=== PATIENT | female | born 1955 | race Caucasian/White ===

== ENCOUNTER → 2018-01-11 06:57 | Outpatient (CLI) | payer OTHER, SELFPAY ==
[2018-01-11 09:55] LABS: Alanine Aminotransferase 78 IU/L (9-52); Albumin 4.4 g/dL (3.5-5.0); Albumin Globulin Ratio 1.4 (1.0-2.8); Alkaline Phosphatase 80 U/L (38-126); Aspartate Aminotransferase 60 IU/L (14-36); Bilirubin Total 0.6 mg/dL (0.2-1.3); Bilirubin Unconjugated 0.3 mg/dL (0.0-1.1); Cholesterol 206 mg/dL (140-199); Globulin 3.2 g/dL (1.7-4.1); HDL Cholesterol 52 mg/dL (40-60); HEMOLYSIS < 15 (0-50); LDL Cholesterol Calculated 112 mg/dL (<100); Total Protein 7.6 g/dL (6.3-8.2); Triglycerides 212 mg/dL (35-150)
[2018-01-11 10:17] LABS: Thyroid Stimulating Hormone 2.85 uIU/mL (0.47-4.68)
== END ==
PROVIDERS: PCP Physician Assistant; Visit Provider Physician Assistant
DX: R74.8 Abnormal levels of other serum enzymes (principal); E78.5 Hyperlipidemia, unspecified; E03.9 Hypothyroidism, unspecified; R94.6 Abnormal results of thyroid function studies; R79.89 Other specified abnormal findings of blood chemistry
CPT/HCPCS: 36415; 80061; 80076; 84443

== ENCOUNTER → 2018-04-08 14:56 | Outpatient (CLI) | payer OTHER, SELFPAY ==
[2018-04-10 15:19] LABS: Fecal Immunochemical Test NOT DETECTED
== END ==
PROVIDERS: PCP Physician Assistant; Visit Provider Physician Assistant
DX: Z12.11 Encounter for screening for malignant neoplasm of colon (principal)
CPT/HCPCS: 82274

== ENCOUNTER → 2019-02-14 06:56 | Outpatient (CLI) | payer MEDICARE, OTHER, SELFPAY ==
[2019-02-14 08:39] LABS: Alanine Aminotransferase 69 IU/L (9-52); Albumin 4.5 g/dL (3.5-5.0); Albumin Globulin Ratio 1.5 (1.0-2.8); Alkaline Phosphatase 61 U/L (38-126); Aspartate Aminotransferase 52 IU/L (14-36); BUN Creatinine Ratio 33.3 (6-22); Bilirubin Total 0.6 mg/dL (0.2-1.3); Blood Urea Nitrogen 20 mg/dL (7-17); Calcium 9.6 mg/dL (8.4-10.2); Carbon Dioxide 32 mmol/L (22-32); Chloride 96 mmol/L (98-107); Cholesterol 199 mg/dL (140-199); Estimated Glomerular Filt Rate > 60.0 mL/min (>60); Globulin 3.1 g/dL (1.7-4.1); Glucose 105 mg/dL (80-110); HDL Cholesterol 56 mg/dL (40-60); HEMOLYSIS < 15 (0-50); LDL Cholesterol Calculated 94 mg/dL (<100); Potassium 3.7 mmol/L (3.4-5.1); Sodium 137 mmol/L (137-145); Total Protein 7.6 g/dL (6.3-8.2); Triglycerides 245 mg/dL (35-150)
[2019-02-14 08:40] LABS: Creatinine Urine Random 112.9 mg/dL
[2019-02-14 08:45] LABS: Microalbumi Creatinin Ratio Ur 7.9 ug/mg CR (<30); Microalbumin Urine Random 0.9 mg/dL (0-1.6)
[2019-02-14 09:10] LABS: Thyroid Stimulating Hormone 4.74 uIU/mL (0.47-4.68)
== END ==
PROVIDERS: PCP Physician Assistant; Visit Provider Physician Assistant
DX: E03.9 Hypothyroidism, unspecified (principal); I10 Essential (primary) hypertension; K76.0 Fatty (change of) liver, not elsewhere classified
CPT/HCPCS: 36415; 80053; 80061; 82043; 82570; 84443

== ENCOUNTER → 2019-03-14 07:47 | Outpatient (CLI) | payer MEDICARE, OTHER, SELFPAY ==
--- NOTE | 2019-03-14 07:50 | DI.MG.S_ITS ---
BILATERAL DIGITAL SCREENING MAMMOGRAM 3D/2D WITH CAD: 03/14/2019 CLINICAL: Routine screening. Family history of breast cancer. Comparison is made to exams dated: 04/16/2017 mammogram, 04/05/2014 mammogram, 05/14/2012 mammogram, and 02/25/2008 mammogram - [facility]. There are scattered fibroglandular elements in both breasts. Current study was also evaluated with a Computer Aided Detection (CAD) system. No significant masses, calcifications, or other findings are seen in either breast. IMPRESSION: NEGATIVE There is no mammographic evidence of malignancy. A 1 year screening mammogram is recommended. This exam was interpreted at Station ID: [id number]. NOTE: For mammograms, a report in lay terms will be sent to the patient. Approximately 15% of breast malignancies will not be visualized mammographically. In the management of a palpable breast mass, a negative mammogram must not discourage biopsy of a clinically suspicious lesion. Electronically Signed By: Jaswinder alcaraz/ilya:03/14/2019 09:18:20 letter sent: Normal Exam ACR BI-RADS Category 1: Negative [id number]
== END ==
PROVIDERS: PCP Physician Assistant; Visit Provider Physician Assistant
DX: Z12.31 Encounter for screening mammogram for malignant neoplasm of breast (principal); Z80.3 Family history of malignant neoplasm of breast; M85.851 Other specified disorders of bone density and structure, right thigh; Z78.0 Asymptomatic menopausal state; F17.200 Nicotine dependence, unspecified, uncomplicated
CPT/HCPCS: 77063; 77067; 77080

== ENCOUNTER 2019-11-16 09:12 | Emergency (ER) | payer MEDICARE, OTHER, SELFPAY ==
[2019-11-16] VITALS (7 sets, daily range): BP systolic 151–225; BP diastolic 72–107; PULSE 70–108; RESP 12–22; TEMP 36.9; O2SAT 97–99; BMI 29.9
--- NOTE | 2019-11-16 09:30 | ED.NEUROSD ---
HPI - Neuro Symptoms/Deficit General Chief Complaint: Hypertension Stated Complaint: high blood pressure/ floaters in right eye Time Seen by Provider: 11/16/19 09:24 Source: patient and family Mode of arrival: Ambulatory Limitations: no limitations History of Present Illness HPI Narrative: This is a 64-year-old female who comes emergency department with complaint of elevated blood pressure. She states she has been checking at home soon elevated since September but increasingly high. She states she gets symptoms such as headaches, and nausea. She has not had any major vision changes other than some floaters in her right eye which occurred about a month ago. She has not had any vision loss. She denies any chest pain or shortness of she has nausea but no vomiting. She denies any abdominal pain. She denies any diarrhea, constipation or new GI symptoms. She denies any frequency, dysuria urgency. She denies any swelling in her extremities. She denies any numbness, tingling or weakness in her extremities. She has a history of a TIA in the . She takes lisinopril 10 mg at bedtime and a lisinopril/hydrochlorothiazide in the morning. She states she has been taking an additional 10 mg in the afternoon without much change. She does take levothyroxine. Patient states that she has had her appendix and tonsils removed but denies any other surgeries. She thought she was taking an aspirin daily because of her combination blood pressure medication but we corrected that information today. She does continue to smoke daily, no alcohol, no illicit. She is accompanied by her today. She comes in today because her pressure is significantly elevated in comparison to what has been in the last couple weeks and the nausea is worse than normal. She does not know any causation with her headaches and nausea and symptom onset Related Data Home Medications Medication Instructions Recorded Confirmed lisinopril 10 mg PO BEDTIME 11/16/19 11/16/19 lisinopril-hydrochlorothiazide 1 tab PO QAM 11/16/19 11/16/19 Previous Rx's Medication Instructions Recorded alendronate 70 mg tablet 70 mg PO QWEEK #12 tab 03/17/19 hydroxyzine HCl 25 mg tablet 25 mg PO BEDTIME PRN #90 tab 08/05/19 levothyroxine 75 mcg tablet 75 mcg PO QAM #90 tab 08/15/19 codeine 10 mg-guaifenesin 100 mg/5 5 ml PO BEDTIME PRN #120 ml 09/06/19 mL oral liquid levothyroxine 50 mcg PO DAILY #30 cap 11/16/19 metoprolol succinate 25 mg PO DAILY #30 each 11/16/19 Allergies Allergy/AdvReac Type Severity Reaction Status Date / Time codeine [CODEINE] Allergy Mild Itchy skin Verified 11/16/19 09:38 azithromycin [AZITHROMYCIN] AdvReac Intermediate UPSET Verified 11/16/19 09:38 STOMACH AND DIARRHEA hydrocodone [HYDROCODONE] AdvReac Mild Itching Verified 11/16/19 09:38 Review of Systems Review of Systems ROS Unobtainable: All systems reviewed & are unremarkable except as noted in HPI and below Patient History Medical History Anxiety (Acute) Low back pain (Acute) Tobacco abuse (Acute) Surgical History Status post appendectomy Status post tonsillectomy and adenoidectomy Status post tubal ligation Social History Smoking Status: Current every day smoker Tobacco: How many years used: 35 quit status: considering quitting second hand exposure: No alcohol intake: former substance use type: does not use Smoking Status: Former smoker Exam Narrative Exam Narrative: GEN: well nourished, well appearing female, alert and oriented x 3, patient appears to be in mild distress. HEENT: Atraumatic, pupils are equal round reactive to light, extraocular movements are intact, nares are clear, no throat is clear without any exudates, erythema, tonsillar enlargement or uvular deviation, no facial droop. HEART: Regular rate and rhythm without murmur, clicks, rubs. Pulses are equal in upper and lower extremities LUNGS:Lungs clear to auscultation, no wheezes, rales, crackles, chest moves symmetrically, no tachypnea, no accessory muscle use. ABD:bowel sounds normal, soft, non-tender, no guarding, rebound, rigidity, no masses noted, no hepatosplenomegaly, no bruit or pulsatile mass. :No CVA tenderness MSCL: Non-tender, no muscle atrophy, muscles strength 5/5 upper and lower extremities, full range of motion, normal gait NEURO:CN 2-12 intact, sensation normal, reflexes 2/4 upper and lower extremities. SKIN: no rash, no erythema, no petechiae or other changes noted. Initial Vital Signs Initial Vital Signs: Vital Signs Temperature 98.4 F 11/16/19 09:35 Pulse Rate 108 H 11/16/19 09:35 Respiratory Rate 22 11/16/19 09:35 Blood Pressure 216/102 H 11/16/19 09:35 Pulse Oximetry 97 11/16/19 09:35 Scores GCS Lud[place] coma scale eye opening: Spontaneous [place] coma scale verbal response: Orientated [place] coma scale motor response: Obey commands Lud[place] coma scale total score: 15 Course Orders Ordered: ED Orders 11/16/19 09:30 Complete Blood Count AUTO DIFF Stat Comprehensive Metabolic Panel Stat Lipase Stat Partial Thromboplastin Time Stat Prothrombin Time INR Stat Thyroid Stimulating Hormone Stat Troponin & CK Cardiac Panel Stat 11/16/19 09:35 XR chest 1V Stat EKG-12 Lead Stat 11/16/19 10:03 CT head/brain wo con Stat 11/16/19 10:41 Urine Microscopic Stat Discontinued Medications Sodium Chloride (Normal Saline 0.9%) 1,000 mls @ 125 mls/hr IV CONT AMANDA Last Infusion: 11/16/19 11:41 Dose: 0 mls/hr Documented by: Infusion: 11/16/19 11:05 Dose: 0 mls/hr Documented by: Admin: 11/16/19 10:18 Dose: 125 mls/hr Documented by: JOE Metoprolol Succinate (Toprol Xl) 25 mg PO NOW ONE Stop: 11/16/19 10:21 Last Admin: 11/16/19 10:33 Dose: 25 mg Documented by: JOE Metoprolol Tartrate (Lopressor) 5 mg IV NOW ONE Stop: 11/16/19 10:14 Last Admin: 11/16/19 10:19 Dose: Not Given Documented by: JOE Metoprolol Tartrate (Lopressor) 25 mg PO NOW ONE Stop: 11/16/19 10:19 Last Admin: 11/16/19 10:23 Dose: Not Given Documented by: JOE Vital Signs Vital signs: Vital Signs - 8 hr 11/16/19 09:35 11/16/19 09:42 11/16/19 10:15 Temperature 98.4 F Pulse Rate 108 H 90 80 Respiratory Rate 22 12 16 Blood Pressure 216/102 H Blood Pressure [Right Arm] 225/107 H 177/90 H Pulse Oximetry 97 99 99 11/16/19 10:33 11/16/19 10:44 11/16/19 11:24 Temperature Pulse Rate 80 74 71 Respiratory Rate 14 17 Blood Pressure 177/90 H Blood Pressure [Right Arm] 151/72 H 166/89 H Pulse Oximetry 99 99 11/16/19 11:40 Temperature Pulse Rate 70 Respiratory Rate Blood Pressure 166/89 H Blood Pressure [Right Arm] Pulse Oximetry MDM - Neuro Symptoms/Deficit Lab Data Attestation: I reviewed the patient's lab results. Result diagrams: 11/16/19 09:30 11/16/19 09:30 Labs: Lab Results 11/16/19 11/16/19 11/16/19 Range/Units 09:30 09:30 09:30 WBC 7.3 (4.5-11.0) X10^3/uL RBC 4.59 (4.0-5.2) X10^6/uL Hgb 14.2 (12.0-16.0) g/dL Hct 40.5 (36-46) % MCV 88.3 (80-100) fL MCH 30.9 (26-34) PG MCHC 35.0 (30-36) % RDW 14.0 (11.6-14.8) % Plt Count 299 (150-400) X10^3/uL Neut % (Auto) 42.6 L (50-75) % Lymph % (Auto) 42.5 H (25-40) % Gillespie % (Auto) 12.3 (3-14) % Eos % (Auto) 1.8 L (2-4) % Baso % (Auto) 0.8 (0-2) % Neut # (Auto) 3100 (4751-7198) /uL Lymph # (Auto) 3100 (7181-4288) /uL Gillespie # (Auto) 900 (0-900) /uL Eos # (Auto) 100 (0-450) /uL Baso # (Auto) 100 (0-100) /uL PT 11.6 (10.1-12.7) SECONDS INR 1.0 (0.9-1.3) APTT 37 H (26.4-36.2) SECONDS Sodium 129 L (137-145) mmol/L Potassium 3.4 (3.4-5.1) mmol/L Chloride 90 L (98-107) mmol/L Carbon Dioxide 27 (22-32) mmol/L BUN 13 (7-17) mg/dL Creatinine 0.50 L (0.52-1.04) mg/dL Estimated GFR > 60.0 (>60) mL/min BUN/Creatinine Ratio 26.0 H (6-22) Glucose 117 H (80-110) mg/dL Calcium 9.9 (8.4-10.2) mg/dL Total Bilirubin 0.6 (0.2-1.3) mg/dL AST 105 H (14-36) IU/L ALT 159 H (<35) IU/L Alkaline Phosphatase 77 (38-126) U/L Total Creatine Kinase 89 (30-135) U/L CK-MB (CK-2) TNP CK-MB (CK-2) Rel Index TNP Troponin I < 0.012 (0.01-0.034) ng/mL Total Protein 8.3 H (6.3-8.2) g/dL Albumin 5.1 H (3.5-5.0) g/dL Globulin 3.2 (1.7-4.1) g/dL Albumin/Globulin Ratio 1.6 (1.0-2.8) Lipase 160 (23-300) U/L TSH (0.47-4.68) uIU/mL Urine RBC (0-5/HPF) Urine WBC (0-5/HPF) Urine Bacteria (None) Ur Culture Indicated? 11/16/19 11/16/19 Range/Units 09:30 10:41 WBC (4.5-11.0) X10^3/uL RBC (4.0-5.2) X10^6/uL Hgb (12.0-16.0) g/dL Hct (36-46) % MCV (80-100) fL MCH (26-34) PG MCHC (30-36) % RDW (11.6-14.8) % Plt Count (150-400) X10^3/uL Neut % (Auto) (50-75) % Lymph % (Auto) (25-40) % Gillespie % (Auto) (3-14) % Eos % (Auto) (2-4) % Baso % (Auto) (0-2) % Neut # (Auto) (0983-4482) /uL Lymph # (Auto) (2585-0948) /uL Gillespie # (Auto) (0-900) /uL Eos # (Auto) (0-450) /uL Baso # (Auto) (0-100) /uL PT (10.1-12.7) SECONDS INR (0.9-1.3) APTT (26.4-36.2) SECONDS Sodium (137-145) mmol/L Potassium (3.4-5.1) mmol/L Chloride (98-107) mmol/L Carbon Dioxide (22-32) mmol/L BUN (7-17) mg/dL Creatinine (0.52-1.04) mg/dL Estimated GFR (>60) mL/min BUN/Creatinine Ratio (6-22) Glucose (80-110) mg/dL Calcium (8.4-10.2) mg/dL Total Bilirubin (0.2-1.3) mg/dL AST (14-36) IU/L ALT (<35) IU/L Alkaline Phosphatase (38-126) U/L Total Creatine Kinase (30-135) U/L CK-MB (CK-2) CK-MB (CK-2) Rel Index Troponin I (0.01-0.034) ng/mL Total Protein (6.3-8.2) g/dL Albumin (3.5-5.0) g/dL Globulin (1.7-4.1) g/dL Albumin/Globulin Ratio (1.0-2.8) Lipase (23-300) U/L TSH 11.40 H (0.47-4.68) uIU/mL Urine RBC 0-1/hpf (0-5/HPF) Urine WBC None seen (0-5/HPF) Urine Bacteria None seen (None) Ur Culture Indicated? Cult not indicated Urine Dip Bedside Urine Glucose Negative Bedside Urine Bilirubin - Negative Bedside Urine Ketone - Negative Urine Specific [place] 1.015 Bedside Urine Occult Blood + Bedside Urine pH 7.0 Bedside Urine Protein - Negative Bedside Urine Urobilinogen - Negative Bedside Urine Nitrite - Negative Bedside Urine Leukocytes - Negative Esterase Imaging Data CT scan - head: Radiologist's Impression: [address] [address] [address] Scan Report Signed Patient: Britt Angulo [facility]#: [id number] : [id number] Age/Sex: 64 / FDate of Service: 11/16/19 Loc: ED Accession Number: [id number] Procedure: CT head/brain wo con Ordering Provider: Celi Dai D.O. PROCEDURE: CT HEAD/BRAIN WO CON INDICATIONS: headaches, nausea, htn TECHNIQUE: Noncontrast 4.5 mm thick angled axial sections acquired from the foramen magnum to the vertex, with coronal and sagittal reformats. For radiation dose reduction, the following was used: automated exposure control, adjustment of mA and/or kV according to patient size. COMPARISON: None. FINDINGS: Image quality: Excellent. CSF spaces: Basal cisterns are patent. No extra-axial fluid collections. Ventricles are normal in size and shape. Brain: No midline shift. No intracranial masses or hemorrhage. Zamora-white matter interface is normal. Skull and face: Calvarium and visualized facial bones are intact, without suspicious lesions. Sinuses: Visualized sinuses and mastoids are clear. IMPRESSION: Normal for age, source of current headaches and nausea symptoms is not seen. Dictated by: Abrahan Salazar M.D. on 11/16/2019 at 10:20 Approved by: Abrahan Salazar M.D. on 11/16/2019 at 10:20 Chest x-ray: Radiologist's Impression: [address] [address] XRay Report Signed Patient: Britt Angulo [facility]#: [id number] : [id number] Age/Sex: 64 / FDate of Service: 11/16/19 Loc: ED Accession Number: [id number] Procedure: XR chest 1V Ordering Provider: Celi Dai D.O. PROCEDURE: XR CHEST 1V INDICATIONS: chest pain TECHNIQUE: One view of the chest was acquired. COMPARISON: [facility], CHEST 2 VIEW, 07/20/2017, 8:45. FINDINGS: Surgical changes and devices: None. Lungs and pleura: Lungs are clear. No pleural effusions or pneumothorax. Mediastinum: Mildly tortuous thoracic aorta is seen. Heart size is normal. Bones and chest wall: No suspicious bony lesions. Overlying soft tissues appear unremarkable. IMPRESSION: No acute cardiopulmonary pathology. Dictated by: Carmine Powell M.D. on 11/16/2019 at 9:57 Approved by: Carmine Powell M.D. on 11/16/2019 at 9:57 ECG Data Attestation: I personally reviewed and interpreted this ECG as follows: Prior ECG tracings: not available for review Interpretation: Sinus tachycardia rate of 106 MI 152 QRS of 90 and QTC [address] No [address] elevation appreciated no depression appreciated. Left axis deviation. Nonsecific change. MDM Narrative Medical decision making narrative: Patient comes in hypertensive, her blood pressure is improving she is down to 189/89 after some observation but was given a single dose of metoprolol p.o. extended release. Head CT and chest x-ray show no acute changes. EKG no priors for comparison she was tachycardic at 1:06 a.m. but no acute changes appreciated. CBC shows low neutrophils with elevated lymphocytes otherwise normal white count, hemoglobin and platelets were 37, patient does have some electrolyte abnormalities with a sodium of 129 and a chloride of 90 which may be contributing to her headaches electrolytes are otherwise normal with a normal renal function and glucose is 117. AST and ALT are 105 and 159 with normal bilirubin and normal lipase troponin is negative. TSH shows elevated TSH. poc urine shows, some blood but no other acute changes Patient's lisinopril and HCTZ may be related to patient's hyponatremia although typically these medications called hypokalemia. Her TSH is also quite elevated and up from prior in February of this may also be causing some of her symptoms. Patient states she has had elevated LFTs chronically. She does not appear to have any other end-organ damage at this time. Discussed with her primary care physician, Dr. Manzano and plan to increase her levothyroxine to 125 micro g daily and to add metoprolol 25 mg 1 tablet p.o. extended release daily and have patient follow-up in the short term with her primary care physician. Discussed with patient, return precautions were discussed. Patient is comfortable with this plan. Discharge Plan Departure Patient Disposition: Home Clinical Impression: Hypertension, Hyponatremia Discharge Date/Time: 11/16/19 11:50 Activity Restrictions/Additional Instructions: Follow-up with your primary care, Dr. Manzano in the next week. Call for an appointment. Continue to check your blood pressures regularly at home and keep a log for your office visit if you have a cuff available. If you have BP greater than 190/100 call to discuss with your physician about adjusting your medications. Increase your levothyroxine to 125 mcg daily. Take your usual 75mcg tablet + 50mcg tablet daily. Also start metoprolol 25mg extended release, take 1 tablet daily for your blood pressure. Take your first dose tomorrow. Prescription was sent to [facility] Continue your current home blood pressure medication of lisinopril and lisinopril/hydrochlorothiazide daily. Return to the ER for severe headaches, passing out, new chest pain or shortness of breath, persistent vomiting, black or bloody stools, swelling in her extremities, sudden vision changes, new numbness tingling or weakness or other new or concerning symptoms. Prescriptions: New metoprolol succinate 25 mg capsule,jose ramon,ER 24hr 25 mg PO DAILY Qty: 30 RF: 0 levothyroxine 50 mcg capsule 50 mcg PO DAILY Qty: 30 RF: 0 No Action alendronate 70 mg tablet 70 mg PO QWEEK Qty: 12 RF: 3 levothyroxine [Synthroid] 75 mcg tablet 75 mcg PO QAM Qty: 90 RF: 0 hydroxyzine HCl 25 mg tablet 25 mg PO BEDTIME PRN (Reason: anxiety) Qty: 90 RF: 1 codeine-guaifenesin 10-100 mg/5 mL liquid 5 ml PO BEDTIME PRN (Reason: cough) Qty: 120 RF: 1 lisinopril 10 mg tablet 10 mg PO BEDTIME RF: 0 lisinopril-hydrochlorothiazide 20-25 mg tablet 1 tab PO QAM RF: 0 Referrals: Enio Manzano DO [Primary Care Provider] - Stand Alone Forms: Work Release Note, Work/School Release
--- NOTE | 2019-11-16 09:35 | DI.RAD.S_ITS ---
PROCEDURE: XR CHEST 1V INDICATIONS: chest pain TECHNIQUE: One view of the chest was acquired. COMPARISON: [facility], , CHEST 2 VIEW, 07/20/2017, 8:45. FINDINGS: Surgical changes and devices: None. Lungs and pleura: Lungs are clear. No pleural effusions or pneumothorax. Mediastinum: Mildly tortuous thoracic aorta is seen. Heart size is normal. Bones and chest wall: No suspicious bony lesions. Overlying soft tissues appear unremarkable. IMPRESSION: No acute cardiopulmonary pathology. Dictated by: Carmine Powell M.D. on 11/16/2019 at 9:57 Approved by: Carmine Powell M.D. on 11/16/2019 at 9:57
[2019-11-16 09:41] LABS: Add Manual Diff / Slide Review NO; Basophils Absolute Auto 100 /uL (0-100); Basophils Percent Auto 0.8 % (0-2); Eosinophils Absolute Auto 100 /uL (0-450); Eosinophils Percent Auto 1.8 % (2-4); Hematocrit 40.5 % (36-46); Hemoglobin 14.2 g/dL (12.0-16.0); Lymphocytes Absolute Auto 3100 /uL (1100-4500); Lymphocytes Percent Auto 42.5 % (25-40); Mean Corpuscular Hemoglobin 30.9 PG (26-34); Mean Corpuscular Volume 88.3 fL (80-100); Monocytes Absolute Auto 900 /uL (0-900); Monocytes Percent Auto 12.3 % (3-14); Neutrophils Absolute Auto 3100 /uL (1500-7000); Neutrophils Percent Auto 42.6 % (50-75); Platelet Count 299 X10^3/uL (150-400); Red Blood Cell Count 4.59 X10^6/uL (4.0-5.2); White Blood Cell Count 7.3 X10^3/uL (4.5-11.0)
[2019-11-16 09:45] LABS: Prothrombin Time 11.6 SECONDS (10.1-12.7)
[2019-11-16 09:47] LABS: PTT Partial Thromboplastin Tim 37 SECONDS (26.4-36.2)
[2019-11-16 09:49] LABS: Alanine Aminotransferase 159 IU/L (<35); Albumin 5.1 g/dL (3.5-5.0); Albumin Globulin Ratio 1.6 (1.0-2.8); Alkaline Phosphatase 77 U/L (38-126); Aspartate Aminotransferase 105 IU/L (14-36); Bilirubin Total 0.6 mg/dL (0.2-1.3); Blood Urea Nitrogen 13 mg/dL (7-17); Calcium 9.9 mg/dL (8.4-10.2); Carbon Dioxide 27 mmol/L (22-32); Chloride 90 mmol/L (98-107); Creatine Kinase 89 U/L (30-135); Estimated Glomerular Filt Rate > 60.0 mL/min (>60); Globulin 3.2 g/dL (1.7-4.1); Glucose 117 mg/dL (80-110); HEMOLYSIS 25 (0-50); Lipase 160 U/L (23-300); Potassium 3.4 mmol/L (3.4-5.1); Sodium 129 mmol/L (137-145); Total Protein 8.3 g/dL (6.3-8.2)
[2019-11-16 10:00] LABS: Troponin I < 0.012 ng/mL (0.01-0.034)
--- NOTE | 2019-11-16 10:03 | DI.CT.S_ITS ---
PROCEDURE: CT HEAD/BRAIN WO CON INDICATIONS: headaches, nausea, htn TECHNIQUE: Noncontrast 4.5 mm thick angled axial sections acquired from the foramen magnum to the vertex, with coronal and sagittal reformats. For radiation dose reduction, the following was used: automated exposure control, adjustment of mA and/or kV according to patient size. COMPARISON: None. FINDINGS: Image quality: Excellent. CSF spaces: Basal cisterns are patent. No extra-axial fluid collections. Ventricles are normal in size and shape. Brain: No midline shift. No intracranial masses or hemorrhage. Zamora-white matter interface is normal. Skull and face: Calvarium and visualized facial bones are intact, without suspicious lesions. Sinuses: Visualized sinuses and mastoids are clear. IMPRESSION: Normal for age, source of current headaches and nausea symptoms is not seen. Dictated by: Arbahan Salazar M.D. on 11/16/2019 at 10:20 Approved by: Abrahan Salazar M.D. on 11/16/2019 at 10:20
[2019-11-16] MEDS: SODIUM CHLORIDE 0.9% 1,000 ML 125 ML IV (10:18)
[2019-11-16] MEDS: METOPROLOL ER 25 MG TABLET PO (10:33)
--- NOTE | 2019-11-16 10:36 | PC.NURSE ---
h/o hypertension w/ increased bp readings over past month. + smoker. States has been on current regimen for ever. c/o headache 2/10 and nausea. BEFAST negative. Neuro intact. Denies chest pain/ shortness of breath. Very anxious but verbally reassured.
[2019-11-16 11:13] LABS: Bacteria Urine None Seen; WBC Urine None Seen (0-5/HPF)
[2019-11-16 11:27] LABS: Culture Indicated Urine Cult Not Indicated; RBC Urine 0-1/HPF (0-5/HPF)
== END 2019-11-16 11:50 | disposition home or self-care (01) ==
PROVIDERS: Emergency Provider Emergency Medicine; PCP Family Medicine
DX: I10 Essential (primary) hypertension (principal); E87.1 Hypo-osmolality and hyponatremia; R07.9 Chest pain, unspecified; R79.89 Other specified abnormal findings of blood chemistry; R51 Headache; R11.0 Nausea
CPT/HCPCS: 36415; 70450; 71045; 80053; 81003; 81015; 82550; 83690; 84443; 84484; 85025; 85610; 85730; 93005; 96360; 99285

== ENCOUNTER 2019-12-05 10:35 | Emergency (ER) | payer MEDICARE, OTHER, SELFPAY ==
[2019-12-05] VITALS (12 sets, daily range): BP systolic 171–224; BP diastolic 92–107; PULSE 84–93; RESP 11–24; TEMP 36.7; O2SAT 95–99
--- NOTE | 2019-12-05 10:44 | ED_ITS ---
HPI - General Adult General Chief complaint: Hypertension Stated complaint: something wrong with blood pressure Time Seen by Provider: 12/05/19 10:44 Source: patient Mode of arrival: Ambulatory Limitations: no limitations History of Present Illness HPI narrative: 64-year-old female former smoker with history of hypertension presents with a chief complaint of feeling poorly with vague headache and general fatigue with gradually increasing blood pressure into the 200s. She was seen here few weeks ago under relatively similar circumstances and had some alterations in her medications after a very thorough evaluation. She denies any specific chest pain or shortness of breath. She denies any focal neurologic fi ndings such as numbness, tingling or weakness. She denies any vomiting but as stated, is nauseated. She denies abdominal pain nor dysuria, frequency or urgency. Related Data Home Medications Medication Instructions Recorded Confirmed lisinopril 10 mg PO BEDTIME 11/16/19 11/23/19 lisinopril-hydrochlorothiazide 1 tab PO QAM 11/16/19 11/23/19 Previous Rx's Medication Instructions Recorded alendronate 70 mg tablet 70 mg PO QWEEK #12 tab 03/17/19 hydroxyzine HCl 25 mg tablet 25 mg PO BEDTIME PRN #90 tab 08/05/19 codeine 10 mg-guaifenesin 100 mg/5 5 ml PO BEDTIME PRN #120 ml 09/06/19 mL oral liquid levothyroxine 125 mcg tablet 125 mcg PO DAILY #90 tab 11/18/19 metoprolol succinate 25 mg capsule 25 mg PO DAILY #90 each 11/23/19 sprinkle, ext. release 24 hr Allergies Allergy/AdvReac Type Severity Reaction Status Date / Time codeine [CODEINE] Allergy Mild Itchy skin Verified 11/23/19 13:16 azithromycin [AZITHROMYCIN] AdvReac Intermediate UPSET Verified 11/23/19 13:16 STOMACH AND DIARRHEA hydrocodone [HYDROCODONE] AdvReac Mild Itching Verified 11/23/19 13:16 Review of Systems Constitutional Constitutional: Denies chills, Reports fatigue, Denies fever(s), Denies frequent falls, Denies lethargy and Denies weakness Eyes Eyes: Denies change in vision, Denies eye discharge, Denies irritation and Denies loss of vision ENT Ears, Nose, Mouth, and Throat: Denies change in voice, Denies dizziness, Denies neck pain, Denies sore throat and Denies throat swelling Cardiovascular Cardiovascular: Denies chest pain, Denies irregular heart rhythm, Denies lightheadedness, Denies palpitations, Denies dyspnea, Denies dyspnea on exertion and Denies orthopnea Respiratory Respiratory: Denies cough, Denies dyspnea, Denies dyspnea on exertion and Denies wheezing Gastrointestinal Gastrointestinal: Denies abdominal pain, Denies change in bowel habits, Denies diarrhea, Reports nausea and Denies vomiting Genitourinary Genitourinary: Denies hematuria, Denies flank pain, Denies urinary incontinence and Denies urinary urgency Musculoskeletal Musculoskeletal: Denies back pain, Denies muscle weakness, Denies neck pain, Denies numbness and Denies tingling Integumentary/Breasts Skin/Breast: Denies pruritus, Denies erythema, Denies rash and Denies wounds Neurologic Neurologic: Denies behavioral changes, Denies confusion, Denies dizziness, Denies frequent falls, Denies loss of vision, Denies numbness, Denies tingling and Denies weakness Psychiatric Psychiatric: Denies anxiety, Denies behavioral changes, Denies confusion, Denies depression, Denies homicidal ideation and Denies suicidal ideation Endocrine Endocrine: Reports fatigue, Denies flushing and Denies palpitations Hematologic/Lymphatic Hematologic/Lymphatic: Denies easy bruising Allergic/Immunologic Allergic/Immunologic: Denies urticaria, Denies throat swelling and Denies wheezing Patient History Medical History Anxiety (Acute) Low back pain (Acute) Tobacco abuse (Acute) Surgical History Status post appendectomy Status post tonsillectomy and adenoidectomy Status post tubal ligation Family History Mother Osteoporosis, post-menopausal Sister Osteoporosis, post-menopausal Social History Smoking Status: Current every day smoker Tobacco: How many years used: 35 quit status: considering quitting second hand exposure: No alcohol intake: former substance use type: does not use Smoking Status: Current every day smoker tobacco type: cigarettes alcohol intake frequency: 0-2 drinks per day Substance Use Type: does not use Exam Narrative Exam Narrative: GENERAL: [64] year old patient appears stated age. Well- nourished, well-developed patient, in mild distress. HEAD: Atraumatic. Normocephalic. EYES: Pupils equal round and reactive. Extraocular motions intact. No scleral icterus. No injection or drainage. ENT: Nose without bleeding, purulent drainage. Throat without erythema, tonsillar hypertrophy or exudate. Airway patent. NECK: Trachea midline. Non tender CARDIOVASCULAR: Regular rate and rhythm without murmurs, gallops, or rubs. RESPIRATORY: Clear to auscultation. Breath sounds equal bilaterally. No wheezes, rales, or rhonchi. GASTROINTESTINAL: Abdomen soft, non-tender, nondistended. EXTREMITIES: No edema or joint tenderness. BACK: Nontender without deformity or crepitance. No flank tenderness. NEURO: AOx3. SKIN: No rash or erythema of visible areas Initial Vital Signs Initial Vital Signs: Vital Signs Temperature 98.1 F 12/05/19 10:37 Pulse Rate 92 H 12/05/19 10:37 Respiratory Rate 13 12/05/19 10:37 Blood Pressure 216/107 H 12/05/19 10:37 Pulse Oximetry 99 12/05/19 10:37 Course Orders Ordered: Discontinued Medications Labetalol HCl (Trandate) 10 mg IV NOW ONE Stop: 12/05/19 12:00 Last Admin: 12/05/19 12:10 Dose: 10 mg Documented by: FLAQUITO Metoprolol Tartrate (Lopressor) 50 mg PO NOW ONE Stop: 12/05/19 12:27 Last Admin: 12/05/19 13:13 Dose: 50 mg Documented by: FLAQUITO Vital Signs Vital signs: Vital Signs - 8 hr 12/05/19 12:09 12/05/19 12:10 12/05/19 12:12 Pulse Rate 91 H 93 H 85 Respiratory Rate 18 14 Blood Pressure 204/98 H Blood Pressure [Right Arm] 193/100 H 187/95 H Pulse Oximetry 97 96 12/05/19 12:15 12/05/19 12:30 12/05/19 13:00 Pulse Rate 85 84 87 Respiratory Rate 11 L 14 15 Blood Pressure Blood Pressure [Right Arm] 171/94 H 172/100 H 191/92 H Pulse Oximetry 95 95 95 12/05/19 13:13 12/05/19 13:30 Pulse Rate 88 88 Respiratory Rate 24 Blood Pressure 191/93 H Blood Pressure [Right Arm] 193/97 H Pulse Oximetry 95 Medical Decision Making Lab Data Result diagrams: 12/05/19 11:00 12/05/19 11:00 Labs: Lab Results 12/05/19 12/05/19 12/05/19 Range/Units 11:00 11:00 11:00 WBC 9.6 (4.5-11.0) X10^3/uL RBC 4.51 (4.0-5.2) X10^6/uL Hgb 14.0 (12.0-16.0) g/dL Hct 39.9 (36-46) % MCV 88.4 (80-100) fL MCH 31.1 (26-34) PG MCHC 35.2 (30-36) % RDW 13.8 (11.6-14.8) % Plt Count 295 (150-400) X10^3/uL Neut % (Auto) 56.6 (50-75) % Lymph % (Auto) 32.4 (25-40) % Saline % (Auto) 9.2 (3-14) % Eos % (Auto) 0.9 L (2-4) % Baso % (Auto) 0.9 (0-2) % Neut # (Auto) 5400 (0076-4291) /uL Lymph # (Auto) 3100 (5745-2172) /uL Saline # (Auto) 900 (0-900) /uL Eos # (Auto) 100 (0-450) /uL Baso # (Auto) 100 (0-100) /uL Sodium 131 L (137-145) mmol/L Potassium 3.5 (3.4-5.1) mmol/L Chloride 94 L (98-107) mmol/L Carbon Dioxide 27 (22-32) mmol/L BUN 15 (7-17) mg/dL Creatinine 0.54 (0.52-1.04) mg/dL Estimated GFR > 60.0 (>60) mL/min BUN/Creatinine Ratio 27.8 H (6-22) Glucose 116 H (80-110) mg/dL Calcium 9.7 (8.4-10.2) mg/dL Total Bilirubin 0.5 (0.2-1.3) mg/dL AST 106 H (14-36) IU/L ALT 154 H (<35) IU/L Alkaline Phosphatase 69 (38-126) U/L Total Creatine Kinase 68 (30-135) U/L CK-MB (CK-2) TNP CK-MB (CK-2) Rel Index TNP Troponin I < 0.012 (0.01-0.034) ng/mL NT-Pro-B Natriuret Pep 33 (<125) pg/mL Total Protein 8.2 (6.3-8.2) g/dL Albumin 4.8 (3.5-5.0) g/dL Globulin 3.4 (1.7-4.1) g/dL Albumin/Globulin Ratio 1.4 (1.0-2.8) Imaging Data Chest x-ray: Radiologist's Impression: [address] [address] XRay Report Signed Patient: Britt Angulo [facility]#: [id number] : 4Acct:[id number] Age/Sex: 64 / FDate of Service: 12/05/19 Loc: ED Accession Number: [id number] Procedure: XR chest 1V Ordering Provider: Wei Alvarez D.O. PROCEDURE: XR CHEST 1V INDICATIONS: DIZZY / HYPERTENSION TECHNIQUE: One view of the chest was acquired. COMPARISON: [facility], CHEST 2 VIEW, 07/20/2017, 8:45. [facility], , XR CHEST 1V, 11/16/2019, 9:37. FINDINGS: Surgical changes and devices: None. Lungs and pleura: On this semiupright portable chest examination, no large pneumothorax or large pleural effusions are seen. No focal infiltrates are seen. Mediastinum: The cardiac contours are within normal limits. The aorta demonstrates calcification and tortuosity. Bones and chest wall: Age-appropriate bony degenerative changes are seen. No suspicious bony lesions. Overlying soft tissues appear unremarkable. IMPRESSION: Unremarkable portable chest for age. Dictated by: Leoncio Garzon M.D. on 12/05/2019 at 10:12 Approved by: Leoncio Garzon M.D. on 12/05/2019 at 10:12 CT scan - head: Radiologist's Impression: Chart Viewer Diagnostics DATE TYPE STATUS AUTHOR Hx 12/05/19 10:48 Iveth Garzone 11/16/19 10:03 Abrahan Salazar 11/16/19 09:35 AndreCarmine 03/14/19 12:30 Bone Density 03/14/19 07:50 Jaswinder De Guzman 03/14/19 07:50 Britt Angulo 64, F0 1955 [facility], [facility] ED R02 76.657kg Hypertension Search Chart No Data to Display Itchy skin UPSET STOMACH AND DIARRHEA Itching ONSET 03/16/09 Today 12:10 Britt Angulo 64 F 1955 [place] [address] CT Scan Report Signed Patient: Britt Angulo DMR#: [id number] : [id number]:[id number] Age/Sex: 64 / FDate of Service: 11/16/19 Loc: ED Accession Number: [id number] Procedure: CT head/brain wo con Ordering Provider: Celi Dai D.O. PROCEDURE: CT HEAD/BRAIN WO CON INDICATIONS: headaches, nausea, htn TECHNIQUE: Noncontrast 4.5 mm thick angled axial sections acquired from the foramen magnum to the vertex, with coronal and sagittal reformats. For radiation dose reduction, the following was used: automated exposure control, adjustment of mA and/or kV according to patient size. COMPARISON: None. FINDINGS: Image quality: Excellent. CSF spaces: Basal cisterns are patent. No extra-axial fluid collections. Ventricles are normal in size and shape. Brain: No midline shift. No intracranial masses or hemorrhage. Zamora-white matter interface is normal. Skull and face: Calvarium and visualized facial bones are intact, without suspicious lesions. Sinuses: Visualized sinuses and mastoids are clear. IMPRESSION: Normal for age, source of current headaches and nausea symptoms is not seen. Dictated by: Abrahan Salazar M.D. on 11/16/2019 at 10:20 Approved by: Abrahan Salazar M.D. on 11/16/2019 at 10:20 ECG Data Attestation: I personally reviewed and interpreted this ECG as follows: Prior ECG tracings: available for review Interpretation: EKG is normal sinus rhythm rate [66] and free of any signs of ischemia. Occasional PVC No ST segmental elevation or depression. No T wave inversions Discharge Plan Departure Patient Disposition: Home Clinical Impression: Fatigue Qualifiers: Fatigue type: unspecified Qualified Code(s): R53.83 - Other fatigue HTN (hypertension) Qualifiers: Hypertension type: essential hypertension Qualified Code(s): I10 - Essential (primary) hypertension Discharge Date/Time: 12/05/19 14:00 Activity Restrictions/Additional Instructions: *You have been diagnosed with [essential hypertension, multifactorial stress] *What to do: *Take medications as directed *Follow up with your primary care provider tomorrow at 4pm *Return to ER if you should have any new, worsening or concerning symptoms Prescriptions: No Action alendronate 70 mg tablet 70 mg PO QWEEK Qty: 12 RF: 3 levothyroxine 125 mcg tablet 125 mcg PO DAILY Qty: 90 RF: 1 hydroxyzine HCl 25 mg tablet 25 mg PO BEDTIME PRN (Reason: anxiety) Qty: 90 RF: 1 codeine-guaifenesin 10-100 mg/5 mL liquid 5 ml PO BEDTIME PRN (Reason: cough) Qty: 120 RF: 1 metoprolol succinate 25 mg capsule,sprinkle,ER 24hr 25 mg PO DAILY Qty: 90 RF: 1 lisinopril 10 mg tablet 10 mg PO BEDTIME RF: 0 lisinopril-hydrochlorothiazide 20-25 mg tablet 1 tab PO QAM RF: 0 Referrals: Enio Manzano DO [Primary Care Provider] - Stand Alone Forms: Work Release Note
--- NOTE | 2019-12-05 10:48 | DI.RAD.S_ITS ---
PROCEDURE: XR CHEST 1V INDICATIONS: DIZZY / HYPERTENSION TECHNIQUE: One view of the chest was acquired. COMPARISON: [facility], , CHEST 2 VIEW, 07/20/2017, 8:45. [facility], , XR CHEST 1V, 11/16/2019, 9:37. FINDINGS: Surgical changes and devices: None. Lungs and pleura: On this semiupright portable chest examination, no large pneumothorax or large pleural effusions are seen. No focal infiltrates are seen. Mediastinum: The cardiac contours are within normal limits. The aorta demonstrates calcification and tortuosity. Bones and chest wall: Age-appropriate bony degenerative changes are seen. No suspicious bony lesions. Overlying soft tissues appear unremarkable. IMPRESSION: Unremarkable portable chest for age. Dictated by: Leoncio Garzon M.D. on 12/05/2019 at 10:12 Approved by: Leoncio Garzon M.D. on 12/05/2019 at 10:12
[2019-12-05 11:13] LABS: Add Manual Diff / Slide Review NO; Basophils Absolute Auto 100 /uL (0-100); Basophils Percent Auto 0.9 % (0-2); Eosinophils Absolute Auto 100 /uL (0-450); Eosinophils Percent Auto 0.9 % (2-4); Hematocrit 39.9 % (36-46); Lymphocytes Absolute Auto 3100 /uL (1100-4500); Lymphocytes Percent Auto 32.4 % (25-40); Mean Corpuscular HGB Conc 35.2 % (30-36); Mean Corpuscular Hemoglobin 31.1 PG (26-34); Mean Corpuscular Volume 88.4 fL (80-100); Monocytes Absolute Auto 900 /uL (0-900); Monocytes Percent Auto 9.2 % (3-14); Neutrophils Absolute Auto 5400 /uL (1500-7000); Neutrophils Percent Auto 56.6 % (50-75); Platelet Count 295 X10^3/uL (150-400); Red Blood Cell Count 4.51 X10^6/uL (4.0-5.2); Red Cell Distribution Width 13.8 % (11.6-14.8); White Blood Cell Count 9.6 X10^3/uL (4.5-11.0)
[2019-12-05 11:26] LABS: Alanine Aminotransferase 154 IU/L (<35); Albumin 4.8 g/dL (3.5-5.0); Albumin Globulin Ratio 1.4 (1.0-2.8); Alkaline Phosphatase 69 U/L (38-126); Aspartate Aminotransferase 106 IU/L (14-36); BUN Creatinine Ratio 27.8 (6-22); Bilirubin Total 0.5 mg/dL (0.2-1.3); Blood Urea Nitrogen 15 mg/dL (7-17); Calcium 9.7 mg/dL (8.4-10.2); Carbon Dioxide 27 mmol/L (22-32); Chloride 94 mmol/L (98-107); Creatine Kinase 68 U/L (30-135); Estimated Glomerular Filt Rate > 60.0 mL/min (>60); Globulin 3.4 g/dL (1.7-4.1); Glucose 116 mg/dL (80-110); HEMOLYSIS 23 (0-50); Potassium 3.5 mmol/L (3.4-5.1); Sodium 131 mmol/L (137-145); Total Protein 8.2 g/dL (6.3-8.2)
[2019-12-05 11:35] LABS: NT-proBNP (BNP-Adult 18+) 33 pg/mL (<125)
[2019-12-05 11:38] LABS: Troponin I < 0.012 ng/mL (0.01-0.034)
[2019-12-05] MEDS: LABETALOL 20 MG/4 ML SYRINGE 10 MG IV (12:10)
[2019-12-05] MEDS: METOPROLOL IR 25 MG TABLET 50 MG PO (13:13)
--- NOTE | 2019-12-05 14:19 | PC.NURSE ---
asked pt if she wanted ice or heat for the site and she declined.
== END 2019-12-05 14:00 | disposition home or self-care (01) ==
PROVIDERS: Emergency Provider Emergency Medicine; PCP Family Medicine
DX: I10 Essential (primary) hypertension (principal); R53.83 Other fatigue; R51 Headache; R11.0 Nausea
CPT/HCPCS: 36415; 71045; 80053; 82550; 83880; 84484; 85025; 93005; 93010; 96374; 99284

== ENCOUNTER → 2020-02-06 10:13 | Outpatient (CLI) | payer MEDICARE, OTHER, SELFPAY ==
[2020-02-06 11:56] LABS: BUN Creatinine Ratio 25.5 (6-22); Blood Urea Nitrogen 14 mg/dL (7-17); Calcium 9.9 mg/dL (8.4-10.2); Carbon Dioxide 30 mmol/L (22-32); Chloride 97 mmol/L (98-107); Estimated Glomerular Filt Rate > 60.0 mL/min (>60); Glucose 101 mg/dL (80-110); HEMOLYSIS < 15 (0-50); Potassium 4.4 mmol/L (3.4-5.1); Sodium 133 mmol/L (137-145)
[2020-02-06 12:11] LABS: Free T3, Triiodothyronine Free 4.18 pg/mL (2.77-5.27); Free T4, Direct Thyroxine 2.22 ng/dL (0.78-2.19)
[2020-02-06 12:34] LABS: Thyroid Stimulating Hormone < 0.015 uIU/mL (0.47-4.68)
== END ==
PROVIDERS: PCP Family Medicine; Referring Provider Family Medicine; Visit Provider Family Medicine
DX: E03.9 Hypothyroidism, unspecified (principal); E87.1 Hypo-osmolality and hyponatremia; I10 Essential (primary) hypertension
CPT/HCPCS: 36415; 80048; 84439; 84443; 84481

== ENCOUNTER 2020-03-30 15:42 | Emergency (ER) | payer MEDICARE, OTHER, SELFPAY ==
[2020-03-30 15:49] VITALS: BP 234/94; PULSE 86; RESP 16; TEMP 36.6; O2SAT 98; BMI 28.5
--- NOTE | 2020-03-30 16:49 | ED_ITS ---
HPI - General Adult General Chief complaint: Hypertension Stated complaint: states blood pressure is too high Time Seen by Provider: 03/30/20 16:38 Source: patient Mode of arrival: Ambulatory History of Present Illness HPI narrative: 65-year-old woman followed by gunnar valdez and Dr. Enio Reynoso with essential hypertension currently on Coreg 25 b.i.d., lisinopril 20 b.i.d. and hydrochlorothiazide 25 in the morning. Continuing to have elevated blood pressures that are asymptomatic. Blood pressures are consistently in the 200/100 range. She denies any vision changes, headaches, altered sensorium, new neurologic findings, chest pain, dyspnea, exertional dyspnea, abdominal pain, or lower extremity edema Related Data Home Medications Medication Instructions Recorded Confirmed lisinopril-hydrochlorothiazide 1 tab PO QAM 11/16/19 12/23/19 Previous Rx's Medication Instructions Recorded hydroxyzine HCl 25 mg tablet 25 mg PO BEDTIME PRN #90 tab 08/05/19 codeine 10 mg-guaifenesin 100 mg/5 5 ml PO BEDTIME PRN #120 ml 09/06/19 mL oral liquid metoprolol succinate 25 mg capsule 25 mg PO DAILY #90 each 11/23/19 sprinkle, ext. release 24 hr metoprolol succinate 50 mg capsule 50 mg PO BID #180 each 12/23/19 sprinkle, ext. release 24 hr alendronate 70 mg tablet 70 mg PO QWEEK #12 tab 01/31/20 lisinopril 10 mg tablet 10 mg PO BEDTIME #90 tab 01/31/20 levothyroxine 112 mcg tablet 112 mcg PO DAILY #90 tab 02/10/20 amlodipine 5 mg PO BID #60 tab 03/30/20 Allergies Allergy/AdvReac Type Severity Reaction Status Date / Time codeine [CODEINE] Allergy Mild Itchy skin Verified 12/23/19 13:27 azithromycin [AZITHROMYCIN] AdvReac Intermediate UPSET Verified 12/23/19 13:27 STOMACH AND DIARRHEA hydrocodone [HYDROCODONE] AdvReac Mild Itching Verified 12/23/19 13:27 Review of Systems Review of Systems Narrative: Remainder of review of systems including constitutional, ENT, cardiovascular, respiratory, GI, , musculoskeletal, skin, neurologic and psychiatric systems reviewed and are unremarkable except as noted in HPI. Patient History Medical History Anxiety (Acute) Cervical somatic dysfunction (Acute) Chronic upper back pain (Acute) Low back pain (Acute) Segmental and somatic dysfunction of thoracic region (Acute) Tobacco abuse (Acute) Surgical History Status post appendectomy Status post tonsillectomy and adenoidectomy Status post tubal ligation Family History Mother Osteoporosis, post-menopausal Sister Osteoporosis, post-menopausal Social History Smoking Status: Former smoker Tobacco: How many years used: 35 quit status: considering quitting second hand exposure: No alcohol intake: former substance use type: does not use Smoking Status: Former smoker tobacco type: cigarettes alcohol intake frequency: 0-2 drinks per day Alcohol type: wine Substance Use Type: does not use Exam Narrative Exam Narrative: General: Healthy appearing, in no acute distress. Able to give a complete and coherent history. Well-nourished well-developed HEENT: Moist mucous membranes, normal sclera with reactive pupils, Neck: No JVD, supple Respiratory: Lungs are clear to auscultation, no wheezing no rales no rhonchi. Full and symmetrical air movement Cardiac: Regular rate and rhythm no murmurs no bruits Abdomen: Soft nontender good bowel tones, no flank pain Skin: Warm and dry, no rashes Neurologic: Grossly neurologically intact with no obvious asymmetries or abnormalities Extremities: No trauma, well perfused Psych: Cooperative, appropriate insight and affect Initial Vital Signs Initial Vital Signs: Vital Signs Temperature 97.8 F 03/30/20 15:49 Pulse Rate 86 03/30/20 15:49 Respiratory Rate 16 03/30/20 15:49 Blood Pressure 234/94 H 03/30/20 15:49 Pulse Oximetry 98 03/30/20 15:49 Course Orders Ordered: ED Orders 03/30/20 15:55 EKG-12 Lead Stat Discontinued Medications Amlodipine Besylate (Norvasc) 5 mg PO NOW ONE Stop: 03/30/20 16:54 Last Admin: 03/30/20 17:05 Dose: 5 mg Documented by: Vital Signs Vital signs: Vital Signs - 8 hr 03/30/20 15:49 Temperature 97.8 F Pulse Rate 86 Respiratory Rate 16 Blood Pressure 234/94 H Pulse Oximetry 98 Medical Decision Making MDM Narrative Medical decision making narrative: Essential hypertension, asymptomatic. Care is reviewed with the provider who has been following her blood pressure most recently, Felipa Roberts. Together we agreed to add amlodipine scheduled in the morning and as needed in the afternoon should she have continued elevated blood pressures that day. She does have a scheduled follow-up. Felipa will consider a renal ultrasound and the patient my also discussed sleep apnea study to see if this may be a contributing factor. At this point she is completely asymptomatic. She has been given of 5 mg dose of amlodipine and discharged home. Discharge Plan Departure Patient Disposition: Home Clinical Impression: Essential hypertension with goal blood pressure less than 140/90 Instructions: DI for High Blood Pressure Activity Restrictions/Additional Instructions: Thank you for coming in today Your blood pressure was indeed quite high. Fortunately you are not having any active symptoms of a stroke, heart attack or other end-stage complications of elevated blood pressure. Because of that, we have the luxury of adding outpatient medications to control your blood pressure. I have talked with Felipa Whitten. The medication regimen your currently taking with the 25mg of carvedilol twice a day, the 20 mg of lisinopril and 25 mg of hydrochlorothiazide in the morning, and an additional 20 mg of lisinopril and 25 mg car like carvedilol in the afternoon is of very appropriate way to split up those medications. To this regimen I am going to suggest we add 5 mg of amlodipine in the morning. (you have been given a dose tonight in the emergency department, please do take a dose in the morning) If before your evening meds your blood pressure is higher than 180/95 please take an additional 5 mg of amlodipine. A prescription for amlodipine has been electronically transmitted to [facility] for you to shredder picker You have a follow-up appointment already scheduled with Ms. Roberts April 06 at noon. Please keep this Please ask her about a sleep study to see if sleep apnea might be complicating some of your blood pressure control If you have symptoms that seem like a heart attack, a stroke, headaches that will resolve increasing confusion and your blood pressure is elevated please return to the emergency department Prescriptions: New amlodipine 5 mg tablet 5 mg PO BID Qty: 60 RF: 0 No Action alendronate 70 mg tablet 70 mg PO QWEEK Qty: 12 RF: 3 lisinopril 10 mg tablet 10 mg PO BEDTIME Qty: 90 RF: 0 levothyroxine 112 mcg tablet 112 mcg PO DAILY Qty: 90 RF: 1 hydroxyzine HCl 25 mg tablet 25 mg PO BEDTIME PRN (Reason: anxiety) Qty: 90 RF: 1 codeine-guaifenesin 10-100 mg/5 mL liquid 5 ml PO BEDTIME PRN (Reason: cough) Qty: 120 RF: 1 metoprolol succinate 25 mg capsule,sprinkle,ER 24hr 25 mg PO DAILY Qty: 90 RF: 1 metoprolol succinate 50 mg capsule,sprinkle,ER 24hr 50 mg PO BID Qty: 180 RF: 1 lisinopril-hydrochlorothiazide 20-25 mg tablet 1 tab PO QAM RF: 0 Referrals: Edelmira Roberts PA-C [[employer] Customer Acquisition Specialist] - Enio Manzano DO [Primary Care Provider] -
[2020-03-30] MEDS: AMLODIPINE 2.5 MG TABLET 5 MG PO (17:05)
[2020-03-30 17:38] VITALS: BP 180/100; PULSE 71; RESP 18; O2SAT 97
== END 2020-03-30 17:40 | disposition home or self-care (01) ==
PROVIDERS: Emergency Provider Emergency Medicine; PCP Family Medicine
DX: I10 Essential (primary) hypertension (principal)
CPT/HCPCS: 93005; 99283

== ENCOUNTER → 2020-07-13 11:03 | Outpatient (CLI) | payer MEDICARE, OTHER, SELFPAY ==
[2020-07-13 12:03] LABS: Cholesterol 185 mg/dL (140-199); HDL Cholesterol 53 mg/dL (40-60); LDL Cholesterol Calculated 103 mg/dL (<100); Triglycerides 145 mg/dL (35-150)
== END ==
PROVIDERS: PCP Family Medicine; Referring Provider Internal Medicine Cardiovascular Disease; Visit Provider Internal Medicine Cardiovascular Disease
DX: I10 Essential (primary) hypertension (principal)
CPT/HCPCS: 36415; 80061

== ENCOUNTER → 2021-04-08 08:54 | Outpatient (CLI) | payer MEDICARE, OTHER, SELFPAY ==
[2021-04-08 10:13] LABS: Add Manual Diff / Slide Review NO; Basophils Absolute Auto 0 /uL (0-100); Basophils Percent Auto 0.5 % (0-2); Eosinophils Absolute Auto 100 /uL (0-450); Eosinophils Percent Auto 1.6 % (2-4); Hematocrit 37.1 % (36-46); Hemoglobin 12.5 g/dL (12.0-16.0); Lymphocytes Absolute Auto 2100 /uL (1100-4500); Lymphocytes Percent Auto 29.7 % (25-40); Mean Corpuscular HGB Conc 33.6 % (30-36); Mean Corpuscular Hemoglobin 29.8 PG (26-34); Mean Corpuscular Volume 88.7 fL (80-100); Monocytes Absolute Auto 800 /uL (0-900); Monocytes Percent Auto 10.8 % (3-14); Neutrophils Absolute Auto 4100 /uL (1500-7000); Neutrophils Percent Auto 57.4 % (50-75); Platelet Count 266 X10^3/uL (150-400); Red Blood Cell Count 4.18 X10^6/uL (4.0-5.2); Red Cell Distribution Width 14.1 % (11.6-14.8); White Blood Cell Count 7.1 X10^3/uL (4.5-11.0)
[2021-04-08 10:24] LABS: Alanine Aminotransferase 54 IU/L (<35); Albumin 4.3 g/dL (3.5-5.0); Albumin Globulin Ratio 1.6 (1.0-2.8); Alkaline Phosphatase 61 U/L (38-126); Aspartate Aminotransferase 46 IU/L (14-36); BUN Creatinine Ratio 24.6 (6-22); Bilirubin Total 0.5 mg/dL (0.2-1.3); Blood Urea Nitrogen 14 mg/dL (7-17); Calcium 9.2 mg/dL (8.4-10.2); Carbon Dioxide 33 mmol/L (22-32); Chloride 95 mmol/L (98-107); Estimated Glomerular Filt Rate > 60.0 mL/min (>60); Globulin 2.7 g/dL (1.7-4.1); Glucose 113 mg/dL (80-110); HEMOLYSIS < 15 (0-50); Potassium 3.6 mmol/L (3.4-5.1); Sodium 136 mmol/L (137-145)
[2021-04-08 10:41] LABS: Free T3, Triiodothyronine Free 3.21 pg/mL (2.77-5.27); Free T4, Direct Thyroxine 1.62 ng/dL (0.78-2.19)
[2021-04-08 10:55] LABS: Thyroid Stimulating Hormone 0.509 uIU/mL (0.47-4.68)
== END ==
PROVIDERS: PCP Family Medicine; Referring Provider Family Medicine; Visit Provider Family Medicine
DX: E03.9 Hypothyroidism, unspecified (principal); I10 Essential (primary) hypertension
CPT/HCPCS: 36415; 80053; 84439; 84443; 84481; 85025

== ENCOUNTER → 2021-04-18 09:31 | Outpatient (CLI) | payer MEDICARE, OTHER, SELFPAY ==
--- NOTE | 2021-04-18 09:38 | DI.CT.S_ITS ---
PROCEDURE: CT HEAD/BRAIN WO CON INDICATIONS: vision loss TECHNIQUE: Noncontrast 4.5 mm thick angled axial sections acquired from the foramen magnum to the vertex, with coronal and sagittal reformats. For radiation dose reduction, the following was used: automated exposure control, adjustment of mA and/or kV according to patient size. COMPARISON: [facility], CT, CT HEAD/BRAIN WO CON, 11/16/2019, 9:59. FINDINGS: Image quality: Excellent. CSF spaces: Basal cisterns are patent. No extra-axial fluid collections. Ventricles are normal in size and shape. Brain: No midline shift. No intracranial masses or hemorrhage. Zamora-white matter interface is normal. Mild atrophy and multifocal ischemic change noted. There is a small cortical infarct involving the mid right superior temporal gyrus. Skull and face: Calvarium and visualized facial bones are intact, without suspicious lesions. Sinuses: Visualized sinuses and mastoids are clear. IMPRESSION: 1. Mild atrophy and chronic ischemic change without acute hemorrhage or mass effect. 2. 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 Approved by: Leonard Villanueva M.D. on 04/18/2021 at 10:20
== END ==
PROVIDERS: PCP Family Medicine; Referring Provider Family Medicine; Visit Provider Family Medicine
DX: H53.121 Transient visual loss, right eye (principal); G31.9 Degenerative disease of nervous system, unspecified; Z86.73 Personal history of transient ischemic attack (TIA), and cerebral infarction without residual deficits
CPT/HCPCS: 70450

== ENCOUNTER → 2021-08-10 08:42 | Outpatient (CLI) | payer MEDICARE, OTHER, SELFPAY ==
[2021-08-10 10:29] LABS: Add Manual Diff / Slide Review NO; Basophils Absolute Auto 0 /uL (0-100); Basophils Percent Auto 0.4 % (0-2); Eosinophils Absolute Auto 200 /uL (0-450); Lymphocytes Absolute Auto 2800 /uL (1100-4500); Mean Corpuscular HGB Conc 35.1 % (30-36); Mean Corpuscular Hemoglobin 30.4 PG (26-34); Mean Corpuscular Volume 86.8 fL (80-100); Monocytes Absolute Auto 900 /uL (0-900); Monocytes Percent Auto 10.9 % (3-14); Neutrophils Absolute Auto 4200 /uL (1500-7000); Neutrophils Percent Auto 51.7 % (50-75); Platelet Count 255 X10^3/uL (150-400); Red Blood Cell Count 4.26 X10^6/uL (4.0-5.2); Red Cell Distribution Width 14.5 % (11.6-14.8); White Blood Cell Count 8.1 X10^3/uL (4.5-11.0)
[2021-08-10 11:07] LABS: BUN Creatinine Ratio 19.4 (6-22); Blood Urea Nitrogen 14 mg/dL (7-17); Calcium 9.5 mg/dL (8.4-10.2); Carbon Dioxide 33 mmol/L (22-32); Chloride 97 mmol/L (98-107); Cholesterol 115 mg/dL (140-199); Estimated Glomerular Filt Rate > 60.0 mL/min (>60); Glucose 105 mg/dL (80-110); HDL Cholesterol 57 mg/dL (40-60); HEMOLYSIS < 15 (0-50); LDL Cholesterol Calculated 33 mg/dL (<100); Potassium 3.7 mmol/L (3.4-5.1); Sodium 134 mmol/L (137-145); Triglycerides 127 mg/dL (35-150)
== END ==
PROVIDERS: PCP Family Medicine; Referring Provider Internal Medicine Cardiovascular Disease; Visit Provider Internal Medicine Cardiovascular Disease
DX: I70.90 Unspecified atherosclerosis (principal); I10 Essential (primary) hypertension
CPT/HCPCS: 36415; 80048; 80061; 85025

== ENCOUNTER → 2024-01-08 15:09 | Outpatient (CLI) | payer MEDICARE, OTHER, SELFPAY ==
[2024-01-08 16:50] LABS: TSH w/ Reflex to FT4 3.92 uIU/mL (0.47-4.68)
== END ==
PROVIDERS: PCP Family Medicine; Referring Provider Family Medicine; Visit Provider Family Medicine
DX: E03.9 Hypothyroidism, unspecified (principal)
CPT/HCPCS: 36415; 84443

== ENCOUNTER → 2024-09-29 | Outpatient (CLI) | payer MEDICARE, OTHER, SELFPAY ==
--- NOTE | 2024-09-29 12:51 | DI.ECHO.S_ITS ---
[facility] : : [address] : : [place] : : [id number] : : Phone: [phone] Echocardiogram Report + + :Name: FEMI BARTON Study Date: 09/29/2024 Height: 64 in : :[facility] ReadingLocation: Weight: 180 lb : : Gender: Female BSA: 1.9 m2 : :: 1955 Age: 69 yrs BP: 118/72 mmHg: :Reason For Study: HYPERTENSION : :Ordering Physician: YOCASTA, : :EDUARDO Performed By: Karime Pelaez : :Referring: EDUARDO FREEMAN : + + Interpretation Summary 1) Normal left ventricular thickness, size, wall motion, and systolic function (EF 60-65%). 2) Normal right ventricular size and function. 3) No significant valvular abnormalities. 4) No prior Echo available for comparison. Procedure: A two-dimensional transthoracic echocardiogram with color flow and Doppler was performed. The study quality was technically adequate. There is no prior echocardiogram noted for this patient. The patient was in sinus bradycardia with heart rates between 55-59 bpm during the exam. Left Ventricle: The left ventricle is normal in size and wall thickness. The ejection fraction is estimated to be 60-65%. Left ventricular systolic function appears normal without focal wall motion abnormalities. Diastolic parameters suggest probable normal left ventricular diastolic function and normal filling pressures. Right Ventricle: The right ventricle is normal size. The right ventricular systolic function is normal. Atria: The left atrial size is normal. Right atrial size is normal. There is no Doppler evidence for an interatrial shunt. Mitral Valve: The mitral valve leaflets appear mildly thickened, but open well. The mitral valve leaflets appear to open well. There is no mitral regurgitation noted. Aortic Valve: The aortic valve is trileaflet. The aortic valve opens well. There is no aortic valve stenosis. No aortic regurgitation is present. Tricuspid Valve: The tricuspid valve leaflets are thin and pliable. There is trace tricuspid regurgitation. Pulmonary artery pressures cannot be estimated because of the lack of a measurable TR jet velocity. Pulmonic Valve: The pulmonic valve leaflets are thin and pliable; valve motion is normal. There is mild pulmonic regurgitation. Great Vessels: The aortic root is normal size. The dimensions of the ascending aorta are normal. The IVC is of normal diameter and collapses greater than 50% with a sniff. This suggests a low right atrial pressure of 3 mm Hg. Pericardium/ Pleura There is no pericardial effusion. There is no pleural effusion. MMode/2D Measurements & Calculations LVIDd: 4.2 cm LVOT diam: 2.0 cm LVIDs: 3.0 cm Ao root diam: 2.9 cm FS: 28.7 % asc Aorta Diam: 3.1 cm EPSS: 0.62 cm Ao Arch Diam (Prox Trans): 3.0 cm IVSd: 0.69 cm LVPWd: 0.92 cm LV kenny. diameter/BSA (cm/m^2): 2.3 LV sys. diameter/BSA (cm/m^2): 1.6 LA A2 area: 15.7 cm2 RA long axis: 4.5 cm LA A4 area: 15.0 cm2 RA area: 11.4 cm2 LA length (vol): 5.1 cm RA vol: 24.3 ml LA vol: 39.6 ml RA : 13.0 ml/m2 LA vol index: 21.2 ml/m2 IVC diam: 1.3 cm RVD1 (basal): 3.1 cm TAPSE: 1.8 cm Doppler Measurements & Calculations Ao V2 max: 140.1 cm/sec LVOT Max Jhon: 89.6 cm/sec Ao V2 mean: 88.5 cm/sec LV V1 max P.2 mmHg Ao max P.9 mmHg LV V1 VTI: 19.4 cm Ao mean P.7 mmHg SCHUYLER(I,D): 2.1 cm2 Ao V2 VTI: 28.8 cm SCHUYLER(V,D): 2.0 cm2 sev ratio: 0.67 SCHUYLER indexed to BSA (cm^2/m^2): 1.1 MV E max jhon: 51.2 cm/sec PA V2 max: 101.7 cm/sec MV A max jhon: 79.5 cm/sec PA V2 mean: 63.5 cm/sec MV E/A: 0.64 PA mean P.9 mmHg Med Peak E' Jhon: 6.6 cm/sec PA pr(Accel): 34.0 mmHg E/E' med: 7.8 Lat Peak E' Jhon: 8.3 cm/sec E/E' lat: 6.2 E/e' average: 7.0 MV dec time: 0.42 sec SV(LVOT): 61.6 ml Reading Physician:05:18 PM
[2024-09-29 13:17] LABS: Hematocrit 41.3 % (36-46); Hemoglobin 13.8 g/dL (12.0-16.0); Mean Corpuscular HGB Conc 33.5 % (30-36); Mean Corpuscular Hemoglobin 30.7 PG (26-34); Mean Corpuscular Volume 91.7 fL (80-100); Platelet Count 237 X10^3/uL (150-400); Red Blood Cell Count 4.51 X10^6/uL (4.0-5.2); Red Cell Distribution Width 14.2 % (11.6-14.8); White Blood Cell Count 9.2 X10^3/uL (4.5-11.0)
== END ==
PROVIDERS: PCP Family Medicine; Referring Provider Internal Medicine Cardiovascular Disease; Visit Provider Internal Medicine Cardiovascular Disease
DX: I37.1 Nonrheumatic pulmonary valve insufficiency (principal); I10 Essential (primary) hypertension
CPT/HCPCS: 36415; 85027; 93306

== ENCOUNTER 2025-03-09 15:23 | Emergency (ER) | payer MEDICARE, OTHER, SELFPAY ==
[2025-03-09 15:29] VITALS: BP 135/72; PULSE 82; RESP 18; TEMP 36.8; O2SAT 96; BMI 30.9
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
--- NOTE | 2025-03-09 15:47 | DI.CT.S_ITS ---
PROCEDURE: CT ABDOMEN PELVIS W CON INDICATIONS: left flank, LUQ, L low back pain TECHNIQUE: After the administration of intravenous contrast, axial sections acquired from the lung bases to the pubic symphysis. Coronal and sagittal reformats were performed. For radiation dose reduction, the following was used: automated exposure control, adjustment of mA and/or kV according to patient size. COMPARISON: None. FINDINGS: Image quality: Diagnostic. Lower Chest: No significant findings. ABDOMEN: Liver: No solid mass. Scattered subcentimeter hypoattenuating lesions, too small to characterize by CT but probably small cysts. Gallbladder: No radiopaque gallstones or wall thickening. Biliary ducts: No biliary dilation. Pancreas: No ductal dilation. Spleen: Size is within normal limits. Adrenal Glands: No adrenal nodules. Kidneys and Ureters: No hydronephrosis. No solid mass. No complex renal cystic lesion which requires follow up. Stomach and Bowel: Normal colonic caliber, without significant wall thickening. Colonic diverticulosis without evidence of diverticulitis. Normal appendix. Peritoneum: No abnormal intraperitoneal fluid. No free air. Ventral Wall: No significant ventral hernia. Abdominal Nodes: No retroperitoneal or mesenteric adenopathy by size criteria. Vessels: Aorta and inferior vena cava are normal in size. PELVIS: Pelvic Organs: Unremarkable. Bladder: No bladder wall thickening, accounting for underdistention. Pelvic Nodes: No enlarged lymph nodes. Miscellaneous: No inguinal hernias are seen. Bones: No aggressive osseous abnormality. IMPRESSION: No nephrolithiasis or hydronephrosis. Colonic diverticulosis without evidence of diverticulitis. Dictated by: Adolph Steen M.D. on 03/09/2025 at 16:41 Approved by: Adolph Steen M.D. on 03/09/2025 at 16:43
[2025-03-09 16:02] LABS: Add Manual Diff / Slide Review NO; Hematocrit 41.7 % (36-46); Hemoglobin 14.1 g/dL (12.0-16.0); Lymphocytes Absolute Auto 2900 /uL (1100-4500); Mean Corpuscular HGB Conc 33.9 % (30-36); Mean Corpuscular Hemoglobin 31.0 PG (26-34); Mean Corpuscular Volume 91.4 fL (80-100); Platelet Count 231 X10^3/uL (150-400)
[2025-03-09] MEDS: KETOROLAC 30 MG/ML VIAL 15 MG IV (16:06)
[2025-03-09] MEDS: ONDANSETRON 4 MG/2 ML INJ IV (16:06)
[2025-03-09] MEDS: SODIUM CHLORIDE 0.9% 1,000 ML 1000 ML IV (16:06)
[2025-03-09 16:16] LABS: Alanine Aminotransferase 187 IU/L (<35); Albumin 4.9 g/dL (3.5-5.0); Albumin Globulin Ratio 1.3 (1.0-2.8); Alkaline Phosphatase 97 U/L (38-126); Blood Urea Nitrogen 17 mg/dL (7-17); Calcium 9.4 mg/dL (8.4-10.2); Carbon Dioxide 25 mmol/L (22-32); Chloride 97 mmol/L (98-107); Estimated Glomerular Filt Rate > 60 mL/min (>60); Globulin 3.7 g/dL (1.7-4.1); Glucose 133 mg/dL (70-99); HEMOLYSIS < 15 (0-50); Lipase 78 U/L (23-300); Potassium 3.8 mmol/L (3.4-5.1); Sodium 134 mmol/L (137-145); Total Protein 8.6 g/dL (6.3-8.2)
[2025-03-09 16:16] LABS: Culture Indicated Urine Cult Not Indicated
--- NOTE | 2025-03-09 16:45 | DI.US.S_ITS ---
PROCEDURE: US ABDOMEN LIMITED INDICATIONS: LEFT UPPER QUADRANT PAIN WITH MARKED LFTS TECHNIQUE: Real-time scanning was performed of the abdominal and retroperitoneal organs, with image documentation. COMPARISON: None. FINDINGS: Liver: Subtle surface nodularity of the liver suggest possible cirrhotic change. Heterogeneous increased echogenicity. No focal liver mass. Gallbladder: Gallbladder sludge. No wall thickening. No stones or pain on examination. Biliary ducts: Intrahepatic bile ducts are non-dilated. Extrahepatic bile ducts are not well seen secondary to overlying bowel gas. Pancreas: Obscured by overlying bowel gas. Miscellaneous: No free abdominal fluid. Imaging of the spleen demonstrates normal size measuring 10.7 cm. IMPRESSION: 1. Question cirrhosis. 2. No gallstone disease. 3. Normal size of spleen. Dictated by: Yon Eubanks M.D. on 03/09/2025 at 17:49 Approved by: Yon Eubanks M.D. on 03/09/2025 at 17:51
[2025-03-09 17:49] VITALS: BP 146/72; PULSE 84
[2025-03-09 18:41] VITALS: BP 132/67; PULSE 74; RESP 16; TEMP 36.5; O2SAT 99
== END 2025-03-09 18:41 | disposition home or self-care (01) ==
PROVIDERS: Emergency Provider Physician Assistant; PCP Family Medicine
DX: K57.90 Diverticulosis of intestine, part unspecified, without perforation or abscess without bleeding (principal); R74.01 Elevation of levels of liver transaminase levels; K74.60 Unspecified cirrhosis of liver; R10.12 Left upper quadrant pain
CPT/HCPCS: 36415; 74177; 76705; 80053; 81015; 83690; 85025; 96361; 96374; 96375; 99284; J1885; J2405; Q9967

== ENCOUNTER → 2025-04-29 09:47 | Outpatient (CLI) | payer MEDICARE, OTHER, SELFPAY ==
[2025-04-29 12:03] LABS: TSH w/ Reflex to FT4 8.20 uIU/mL (0.47-4.68)
[2025-04-29 12:29] LABS: Free T4, Direct Thyroxine 1.45 ng/dL (0.78-2.19)
== END ==
PROVIDERS: PCP Family Medicine; Referring Provider Family Medicine; Visit Provider Family Medicine
DX: E03.9 Hypothyroidism, unspecified (principal)
CPT/HCPCS: 36415; 84439; 84443

== ENCOUNTER 2025-05-20 07:12 | Emergency (ER) | payer MEDICARE, OTHER, SELFPAY ==
[2025-05-20 07:28] VITALS: BP 141/67; PULSE 102; RESP 18; TEMP 37.2; O2SAT 93; BMI 35.3
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
[2025-05-20] MEDS: ONDANSETRON 4 MG/2 ML INJ IV (07:54)
[2025-05-20 08:10] LABS: Add Manual Diff / Slide Review NO; Hematocrit 40.9 % (36-46); Hemoglobin 14.2 g/dL (12.0-16.0); Lymphocytes Absolute Auto 1900 /uL (1100-4500); Mean Corpuscular HGB Conc 34.7 % (30-36); Mean Corpuscular Hemoglobin 30.8 PG (26-34); Mean Corpuscular Volume 88.7 fL (80-100); Platelet Count 237 X10^3/uL (150-400)
[2025-05-20 08:20] LABS: Alanine Aminotransferase 149 IU/L (<35); Albumin 5.0 g/dL (3.5-5.0); Albumin Globulin Ratio 1.4 (1.0-2.8); Alkaline Phosphatase 94 U/L (38-126); Blood Urea Nitrogen 16 mg/dL (7-17); Calcium 9.2 mg/dL (8.4-10.2); Carbon Dioxide 24 mmol/L (22-32); Chloride 95 mmol/L (98-107); Estimated Glomerular Filt Rate > 60 mL/min (>60); Globulin 3.6 g/dL (1.7-4.1); Glucose 170 mg/dL (70-99); HEMOLYSIS < 15 (0-50); Lipase 60 U/L (23-300); Potassium 3.5 mmol/L (3.4-5.1); Sodium 132 mmol/L (137-145); Total Protein 8.6 g/dL (6.3-8.2)
[2025-05-20 09:16] VITALS: PULSE 88; O2SAT 95
[2025-05-20 09:30] VITALS: BP 141/67; PULSE 87; O2SAT 95
[2025-05-20 09:47] VITALS: BP 140/63; PULSE 94; O2SAT 95
[2025-05-20 10:00] VITALS: BP 150/67; PULSE 93; O2SAT 92
[2025-05-20] MEDS: KETOROLAC 30 MG/ML VIAL 15 MG IV (10:29)
[2025-05-20 10:30] VITALS: BP 144/65; PULSE 89; O2SAT 94
--- NOTE | 2025-05-20 10:37 | PC.NURSE ---
Pt taking AM BP medications as rx. provider aware
== END 2025-05-20 11:01 | disposition home or self-care (01) ==
PROVIDERS: Emergency Provider Emergency Medicine; PCP Family Medicine
DX: R10.A2 Flank pain, left side (principal); R11.2 Nausea with vomiting, unspecified
CPT/HCPCS: 36415; 74177; 80053; 81003; 81015; 83690; 85025; 87086; 96374; 96375; 99284; J1171; J1885; J2405; Q9967

== ENCOUNTER → 2025-06-10 10:49 | Outpatient (CLI) | payer MEDICARE, OTHER, SELFPAY ==
--- NOTE | 2025-06-10 10:51 | DI.MG.S_ITS ---
MM screening mammo BI: 06/10/2025. BI-RADS: 1 CLINICAL: 70-year old female for bilateral screening mammogram. Tyrer-Cuzick lifetime risk of 5.7%. Current reported family history of breast cancer: sister. PRIOR EXAMS 03/14/2019, 04/16/2017. MAMMOGRAPHY TECHNIQUE: 2D and 3D (tomosynthesis) digital mammographic views obtained, with additional images as needed for full coverage. Current study was also evaluated with a Computer Aided Detection (CAD) system. DENSITY A. The breasts are almost entirely fatty. MAMMOGRAPHY FINDINGS Bilateral: No suspicious mass, asymmetry, microcalcification, or other abnormality seen. IMPRESSION: * No evidence of malignancy. RECOMMENDATIONS Bilateral * Annual screening mammography. OVERALL ASSESSMENT CATEGORY BI-RADS-1: Negative. [employer] recommends annual screening mammography beginning at age 40 for women with average risk of breast cancer. ELECTRONICALLY SIGNED: Basil Donaldson M.D. on 06/12/2025 at 06:52:57 AM PT Interpreting Station ID: [id number]
== END ==
LOC: MAMMO 10:50
PROVIDERS: PCP Family Medicine; Referring Provider Family Medicine; Visit Provider Family Medicine
DX: Z12.31 Encounter for screening mammogram for malignant neoplasm of breast (principal); R92.313 Mammographic fatty tissue density, bilateral breasts; Z80.3 Family history of malignant neoplasm of breast
CPT/HCPCS: 77063; 77067

== ENCOUNTER → 2025-06-24 11:09 | Outpatient (CLI) | payer MEDICARE, OTHER, SELFPAY ==
[2025-06-24 13:15] LABS: Alanine Aminotransferase 121 IU/L (<35); Albumin 4.2 g/dL (3.5-5.0); Albumin Globulin Ratio 1.5 (1.0-2.8); Alkaline Phosphatase 104 U/L (38-126); Blood Urea Nitrogen 19 mg/dL (7-17); Calcium 9.2 mg/dL (8.4-10.2); Carbon Dioxide 26 mmol/L (22-32); Chloride 102 mmol/L (98-107); Estimated Glomerular Filt Rate > 60 mL/min (>60); Globulin 2.8 g/dL (1.7-4.1); Glucose 116 mg/dL (70-99); HEMOLYSIS < 15 (0-50); Potassium 3.7 mmol/L (3.4-5.1); Sodium 137 mmol/L (137-145); Total Protein 7.0 g/dL (6.3-8.2)
[2025-06-24 13:34] LABS: Free T3, Triiodothyronine Free 4.59 pg/mL (2.77-5.27); Free T4, Direct Thyroxine 2.74 ng/dL (0.78-2.19)
[2025-06-24 13:48] LABS: Thyroid Stimulating Hormone < 0.015 uIU/mL (0.47-4.68)
== END ==
PROVIDERS: PCP Family Medicine; Referring Provider Family Medicine; Visit Provider Family Medicine
DX: E03.9 Hypothyroidism, unspecified (principal); K76.0 Fatty (change of) liver, not elsewhere classified
CPT/HCPCS: 36415; 80053; 84439; 84443; 84481